=== PATIENT | male | born 1935 ===

== ENCOUNTER 2016-09-30 07:42 | Day surgery (SDC) | payer OTHER ==
--- NOTE | ~2016-09-30 | OP ---
Record Of Operation [facility] [address] [place]. [address] NAME: TAYLOR GREENE : 37 STATUS : REG [facility] PAT#: [id number] AGE: 80 ADM/REG DATE : 09/30/16 MR#: [id number] REPORT SERV DATE: 09/30/16 DICTATED BY: ESHA HAYS DATE: 09/30/16 REPORT STATUS : Draft TRANSCRIBED BY: MODL DATE: 09/30/16 DATE OF PROCEDURE: 09/30/2016 PREOPERATIVE DIAGNOSIS: Prostate nodule. POSTOPERATIVE DIAGNOSIS: Prostate nodule. PROCEDURE PERFORMED: Transrectal ultrasound-guided biopsy of the prostate. SURGEON: Esha Hays M.D. ANESTHESIA: MAC. HISTORY: This is a 80-year-old white male, who has a new prostatic nodule in the mid left gland. We are planning transrectal ultrasound guided biopsy. Risks of infection, bleeding, failure, etc. were reviewed. PROCEDURE IN DETAIL: The patient was taken to the operating room and was placed in a lateral position on the stretcher bed. He underwent MAC. A brief digital rectal exam revealed an area of induration in the central portion of the left prostate. The transrectal ultrasound probe was then introduced gently per rectum. Prostatic imaging was obtained. There was quite a bit of calcification within the prostate both on the left and right sides. The left lobe looked diffusely mildly inhomogeneous. There was a hyperechoic area in the right mid gland. Twelve sextant biopsies were taken of the prostate under ultrasound guidance from the base of the mid gland, and the apical regions bilaterally. The hyperechoic nodule was also biopsied. The patient tolerated the procedure very well and at the conclusion of the case, the ultrasound probe was then withdrawn per rectum and a Gelfoam pledget was placed per rectum as well. He was taken to recovery in stable condition. KODY/MYRIAM Esha Hays M.D. / [id number] CC: Coleen Jerome M.D.
[~2016-09-30 07:42] MED LIST: AVODART PO; CARDURA8 MG PO; CENTRUM PO; KLOR-CON 1010 MEQ PO; PRILOSEC OTC20 MG PO; ZESTORETIC PO
[2016-09-30 08:14] LABS: BASOPHILS 0.3 %; BASOPHILS ABSOLUTE 0.02 10/3/uL (0.0-0.16); EOSINOPHILS 1.6 %; EOSINOPHILS ABSOLUTE 0.11 10/3/uL (0.0-0.53); HEMATOCRIT 38.8 % (40.0-51.0); HEMOGLOBIN 13.8 g/dL (13.6-17.8); IMMATURE GRANULOCYTES 0.3 %; IMMATURE GRANULOCYTES ABSOLUTE 0.02 10/3/uL (0.0-0.11); LYMPHOCYTES 29.6 %; LYMPHOCYTES ABSOLUTE 1.98 10/3/uL (0.67-4.30); MEAN CORPUS HGB CONC 35.6 g/dL (32.0-36.0); MEAN CORPUSCULAR HEMOGLOB 31.2 pg (26.0-34.0); MEAN CORPUSCULAR VOLUME 87.6 fL (80-100); MONOCYTES 9.3 %; MONOCYTES ABSOLUTE 0.62 10/3/uL (0.21-1.20); NEUTROPHILS 58.9 %; NEUTROPHILS ABSOLUTE 3.94 10/3/uL (2.02-8.40); PLATELET COUNT 142 10/3/uL (150-400); RBC DISTRIBUTION WIDTH 13.3 % (12.0-16.0); RED CELL COUNT 4.43 10/6/uL (4.7-6.1); WHITE BLOOD CELLS 6.7 10/3/uL (4.5-10.5)
[2016-09-30 08:15] LABS: MANUAL DIFF NO %
[2016-09-30 08:21] LABS: INTERNATIONAL NORMAL RATI 1.1 UNITS (-); PROTIME (NOT ORD) 13.9 SEC (12.0-14.5)
[2016-09-30 08:22] LABS: PARTIAL THROMBO TIME 32.1 SEC (22.5-37.2)
[2016-09-30 08:26] LABS: BUN (BLOOD UREA NITROGEN) 11 MG/DL (6-23); CALCIUM, SERUM 8.8 MG/DL (8.5-10.4); CHLORIDE, SERUM 107 MMOL/L (96-112); CO2 (CARBON DIOXIDE) 26 MMOL/L (24-34); CREATININE 1.11 MG/DL (0.70-1.30); GFR AFRICAN AMERICAN 73 ML/MIN (>=60); GFR NON AFRICAN AMERICAN 63 ML/MIN (>=60); GLUCOSE, SERUM 117 MG/DL (60-99); SODIUM, SERUM 143 MMOL/L (135-148)
== END 2016-09-30 16:59 | disposition home or self-care (01) ==
LOC: SDC 07:42
PROVIDERS: Urology
PROC: 0V907ZX Drainage of Prostate, Via Natural or Artificial Opening, Diagnostic (ICD-10-PCS; principal; 2016-09-30 09:00)
DX: N41.0 Acute prostatitis (principal); N41.1 Chronic prostatitis; N40.0 Benign prostatic hyperplasia without lower urinary tract symptoms; I10 Essential (primary) hypertension; K21.9 Gastro-esophageal reflux disease without esophagitis; Z79.899 Other long term (current) drug therapy; Z87.891 Personal history of nicotine dependence; Z97.2 Presence of dental prosthetic device (complete) (partial); Z98.890 Other specified postprocedural states
CPT/HCPCS: 76872; 76942; 80048; 85025; 85610; 85730; 88305; 93005